=== PATIENT | female | born 1995 | race Caucasian/White ===

== ENCOUNTER 2018-04-04 12:52 | Emergency (ER) | END 2018-04-04 15:53 | disposition home or self-care (01) ==

== ENCOUNTER 2018-09-16 16:27 | Emergency (ER) | END 2018-09-16 19:24 | disposition home or self-care (01) ==

== ENCOUNTER 2019-03-29 10:19 | Emergency (ER) | payer OTHER ==
[~2019-03-29] VITALS: Ht 175.3 cm; Wt 99.5 kg
[~2019-03-29 10:19] MED LIST: ACET500C5 PO; BENZ1LOZ52 MM; IBUP-1542 PO; OFLO5DRO7 BOTH EARS; OMEP20CA16 PO; ONDA4TAB14 PO; RANI150T35 PO
[2019-03-29 10:23] VITALS: Ht 175.3 cm; Wt 99.5 kg
[2019-03-29] MEDS ORDERED: SOD CHLORIDE 0.9% 1,000 ML IV STA (10:42)
[2019-03-29] MEDS ORDERED: KETOROLAC 15 MG INJ IV STA (13:12)
[2019-03-29] MEDS ORDERED: DIPHENHYDRAMINE 50 MG INJ IV ONE (13:30)
[2019-03-29] MEDS ORDERED: METOCLOPRAMIDE 10 MG INJ IV ONE (13:30)
[2019-03-29] MEDS ORDERED: CEPH-443 PO (14:21)
--- NOTE | 2019-03-29 14:21 | ERD ---
ER Documentation Chief Complaint Chief Complaint RT SIDE HEAD , RT SHOULDER PAIN S/P FALL /SYNCOPAL EPISODE YESTERDAY HPI This is a 23-year-old female with a past medical history of GERD who is presenting after a syncopal event. The patient was out with her friends at a bowling alley. She had just finished eating carne asada fries and onion rings. She got up from a seated position when she suddenly felt lightheaded and dizzy. She felt tingling in her face and reports that her vision started to go out. Next thing she remembers is being helped up off the floor. The patient lost consciousness for a few seconds to a minute before coming to per report. The patient did hit her head and also landed on her right shoulder. The patient does endorse a mild right-sided headache with some lightheadedness. She also endorses some nausea without vomiting. She does not endorse any photophobia or phonophobia or double or blurry vision. She also feels foggy and is having trouble focusing. She lastly endorses right shoulder soreness and pain with some limited range of motion secondary to pain. The patient has had no focal deficits. The patient has had no weakness or numbness or tingling to the face or extremities. The patient denies feeling sick recently. The patient denies fever or chills. The patient does not endorse neck or back pain. The patient has had no chest pain or trouble breathing. The patient denies abdominal pain. The patient denies changes to bowel movements. She does not endorse dysuria, but she does endorse urinary urgency and frequency, which is new. ROS All systems reviewed and are negative except as per history of present illness. Medications Home Meds Discontinued Scripts Ondansetron (Ondansetron Odt) 4 Mg Tab.rapdis, 4 MG PO Q6H PRN for NAUSEA AND/OR VOMITING, #10 TAB Prov:LANE HANNA PA-C 09/16/18 Omeprazole* (Omeprazole*) 20 Mg Capsule.dr, 20 MG PO DAILY, #20 Prov:LANE HANNA PA-C 09/16/18 Ranitidine Hcl* (Zantac*) 150 Mg Tablet, 150 MG PO BID PRN for EPIGASTRIC PAIN, #30 TAB Prov:LANE HANNA PA-C 09/16/18 Acetaminophen* (Tylophen*) 500 Mg Capsule, 1 CAP PO Q6H PRN for PAIN AND OR ELEVATED TEMP, #20 CAP Prov:RENETTA TREJO PA-C 04/04/18 Ibuprofen* (Motrin*) 600 Mg Tab, 600 MG PO Q6, #30 TAB Prov:RENETTA TREJO PA-C 04/04/18 Ondansetron (Ondansetron Odt) 4 Mg Tab.rapdis, 4 MG PO Q6H PRN for NAUSEA AND/OR VOMITING, #10 TAB Prov:RENETTA TREJO PA-C 04/04/18 Benzocaine/Menthol* (Cepacol* Sore Throat Lozenges) 1 Each Lozenge, 1 EACH MM q2h PRN for SORE THROAT for 10 Days, LOZENGE Prov:DEJESUSFRANCISCO JAVIER I. POCKET CLOSER 12/14/15 Acetaminophen* (Tylophen*) 500 Mg Capsule, 2 CAP PO Q8H PRN for PAIN AND OR ELEVATED TEMP, #20 CAP Prov:DEJESUSFRANCISCO JAVIER I. POCKET CLOSER 12/14/15 Ibuprofen* (Motrin*) 600 Mg Tab, 600 MG PO Q6, #14 TAB Prov:DEJESUSFRANCISCO JAVIER I. POCKET CLOSER 12/14/15 Ofloxacin* (Floxin* Otic) 0.3% -10 Ml Soln, 5 DROP BOTH EARS BID for 10 Days, BOTTLE Prov:DEJESUSFRANCISCO JAVIER I. POCKET CLOSER 12/14/15 Allergies Allergies: Coded Allergies: No Known Allergy (Unverified , 03/29/19) PMhx/Soc Medical and Surgical Hx: pt denies Surgical Hx History of Surgery: No Anesthesia Reaction: No Hx Neurological Disorder: No Hx Respiratory Disorders: No Hx Cardiac Disorders: No Hx Psychiatric Problems: No Hx Miscellaneous Medical Probl: Yes (GERD) Hx Alcohol Use: Yes (OCCASIONAL DRINKER) Hx Substance Use: Yes (marijuana occassionally) Hx Tobacco Use: No Smoking Status: Never smoker FmHx Family History: No diabetes Physical Exam Vitals Vital Signs Date Temp Pulse Resp B/P (MAP) Pulse Ox O2 O2 Flow FiO2 Time Delivery Rate 03/29/19 70 121/81 12:13 (94) 74 116/76 (89) 75 124/98 (107) 03/29/19 98.1 83 18 132/89 99 10:23 (103) Physical Exam Const: No apparent distress, well-developed, well-nourished Head: Normocephalic. Mild abrasion to the right forehead. Eyes: Normal Conjunctiva. Extraocular movements intact. Pupils equal, round and reactive to light ENT: Normal External Ears, Nose and Mouth. Neck: Full range of motion. No meningismus. Resp: Clear to auscultation bilaterally, No wheezes, rales or rhonchi Cardio: Regular rate and rhythm. No murmurs, rubs or gallops Abd: Soft, non tender, non distended. Normal bowel sounds Skin: No petechiae or rashes Back: No midline tenderness. No CVA tenderness Ext: No cyanosis, or edema. Limited range of motion to the right shoulder secondary to pain. Neur: Awake and alert, oriented 4. Cranial nerves intact. No facial droop. Normal strength, sensation and coordination. Psych: Normal Mood and Affect Result Diagram: 03/29/19 1042 03/29/19 1120 Results 24 hrs Laboratory Tests Test 03/29/19 10:42 03/29/19 10:45 03/29/19 10:56 03/29/19 11:20 White Blood 11.7 10^3/ul Count Red Blood Count 5.11 10^6/ul Hemoglobin 12.0 g/dl Hematocrit 38.6 % Mean Corpuscular 75.5 fl Volume Mean Corpuscular 23.5 pg Hemoglobin Mean Corpuscular 31.1 g/dl Hemoglobin Kin[place] nt Red Cell 15.9 % Distribution Width Platelet Count 357 10^3/UL Mean Platelet 9.7 fl Volume Immature 0.400 % Granulocytes % Neutrophils % 76.6 % Lymphocytes % 13.5 % Monocytes % 8.8 % Eosinophils % 0.3 % Basophils % 0.4 % Nucleated Red 0.0 /100WBC Blood Cells % Immature 0.050 10^3/ul Granulocytes # Neutrophils # 8.9 10^3/ul Lymphocytes # 1.6 10^3/ul Monocytes # 1.0 10^3/ul Eosinophils # 0.0 10^3/ul Basophils # 0.1 10^3/ul Nucleated Red 0.0 10^3/ul Blood Cells # Urine Color YELLOW Urine Clarity CLOUDY Urine pH 7.0 Urine Specific 1.012 [place] Urine Ketones NEGATIVE mg/dL Urine Nitrite NEGATIVE mg/dL Urine Bilirubin NEGATIVE mg/dL Urine NEGATIVE mg/dL Urobilinogen Urine Leukocyte 1+ [place]/ul Esterase Urine 6 /HPF Microscopic RBC Urine 24 /HPF Microscopic WBC Urine Squamous MODERATE /HPF Epithelial Cells Urine Bacteria FEW /HPF Urine Hemoglobin 1+ mg/dL Urine Glucose NEGATIVE mg/dL Urine Total NEGATIVE mg/dl Protein POC Beta HCG, NEGATIVE Qualitative Sodium Level 140 mmol/L Potassium Level 4.1 mmol/L Chloride Level 108 mmol/L Carbon Dioxide 23 mmol/L Level Anion Gap 9 Blood Urea 9 mg/dl Nitrogen Creatinine 0.60 mg/dl Est Glomerular > 60 mL/min Filtrat Rate mL/min Glucose Level 90 mg/dl Calcium Level 9.0 mg/dl Troponin I < 0.012 ng/ml Current Medications Medications Dose Sig/Sulaiman Start Time Status Last (Trade) Ordered Route PRN Stop Time Admin Dose Reason Admin Sodium 1,000 ml @ Q1H STAT 03/29/19 DC 03/29/19 Chloride 1,000 mls/hr IV 10:42 11:35 03/29/19 11:41 10 mg ONCE ONCE 03/29/19 DC 03/29/19 Metoclopramid IV 13:30 13:36 e HCl 03/29/19 13:31 (Reglan) 25 mg ONCE ONCE 03/29/19 DC 03/29/19 Diphenhydrami IV 13:30 13:36 ne HCl 03/29/19 13:31 (Benadryl) Ketorolac 15 mg ONCE STAT 03/29/19 DC 03/29/19 Tromethamine IV 13:12 13:36 (Toradol) 03/29/19 13:14 Procedures/MDM MDM The patient's presentation warrants further investigation. Previous medical records, if available, were reviewed. LABS The patient's laboratory testing was obtained and reviewed. No emergent treatment was required unless described below. CBC: Mild leukocytosis without shift, likely reactive. Microcytosis without anemia. Normal platelet count. Chemistry: No E/o severe acidosis or alkalosis or renal failure or diabetic ketoacidosis Troponin: No E/o acute ischemia Urine: E/o acute infection with hematuria EKG EKG read by me: Rate/Rhythm: Regular rate and rhythm at a rate of 83 bpm Intervals: Normal [place]: Normal Impression: No evidence of acute ischemia or arrhythmia IMAGING Imaging and Radiology interpretation reviewed. CXR FINDINGS: Support Hardware: None Cardiovascular: The cardiovascular silhouette appears unremarkable. Lung Puckett: The lung puckett appear clear with no nodule, alveolar infiltrate, or interstitial prominence evident. Pleural Spaces: No pneumothorax or pleural effusion is identified. Osseous Structures: The osseous structures appear intact. Soft Tissues: The soft tissues appear unremarkable. IMPRESSION: Unremarkable portable chest. Electronically viewed and signed by Physician Jennifer on 03/29/2019 10:57 TREATMENT/DISPOSITION The patient presents after a syncopal event. The patient has a reassuring physical exam. The patient is not clinically orthostatic. The patient is not dizzy. I have decreased suspicion for vertigo. The patient has no signs of em ergent or symptomatic anemia. The patient does not have any emergent electrolyte or metabolic emergencies. I have decrease suspicion for a thyroid disorder. The patient is not toxic appearing. I have decreased suspicion for a systemic infection as the etiology of symptoms. The patient's urinalysis does reveal urinary tract infection. This could have led to a vasovagal event. The patient will require antibiotics in an outpatient setting. The patient's EKG and troponin are reassuring. I have low suspicion for acute coronary syndrome. I do not see evidence of any emergent cardiac arrhythmia, which includes but is not limited to heart block, Brugada syndrome or WPW. The patient has no heart murmurs or rales. There is no evidence of cardiomegaly on exam or chest xray. I have low suspicion for hypertrophic cardiomyopathy. I do not see evidence of CHF. The patient does not endorse any chest or pleuritic pain. The history is negative for bleeding or clotting disorders. The patient has not been involved in any recent prolonged trips or surgeries or hospitalizations. The patient has no calf tenderness or swelling. I have decreased suspicion for PE as the etiology of symptoms. The patient did fall and hit her head last night during her syncopal event. I do suspect that she could have sustained a concussion. The patient has no focal deficits. The neurologic exam is reassuring. I have decreased suspicion for cerebral ischemia. There is no personal or family history of cerebral aneurysm. I have decreased suspicion for SAH or other ICH. I have low suspicion for temporal arteritis, cavernous venous thrombosis, subdural hematoma, epidural hematoma, meningitis. I do not feel that further CT imaging is required at this time. The [place] Syncope Rule was applied and the patient was found to be low risk for a serious outcome. The patient was treated with IV fluids, Toradol, Reglan and Benadryl with some improvement of her symptoms. DISCHARGE Upon reevaluation of the patient, symptoms have improved. No emergent diagnoses were identified. At this time, I feel that the patient stable for discharge. The patient was instructed to follow-up with a primary care physician in 1-3 days. The patient will be given strict precautions with which to return to the emergency department. Prescriptions: Keflex The patient's blood pressure was elevated at greater than 120/80 while in the emergency department. The patient was otherwise stable with no evidence of hypertensive urgency or emergency. The patient does not require admission for blood pressure control. I have discussed with the patient the risks of hypertension. I have instructed the patient to return to the ER for any new or worsening symptoms including chest pain, shortness of breath, headache, blurred vision, confusion, nausea, vomiting or LOC. I have advised the patient to follow up with the primary care physician for outpatient monitoring and treatment for hypertension in 1-3 days. Disclaimer: Inadvertent spelling and grammatical errors are likely due to EHR/dictation software use and do not reflect on the overall quality of patient care. Note that the electronic time recorded on this note does not necessarily reflect the actual time of the patient encounter. Departure Diagnosis: Primary Impression: Syncope Syncope type: unspecified Qualified Codes: R55 - Syncope and collapse Additional Impressions: Head trauma Encounter type: initial encounter Qualified Codes: S09.90XA - Unspecified injury of head, initial encounter Leukocytosis Leukocytosis type: unspecified Qualified Codes: D72.829 - Elevated white blood cell count, unspecified Microcytosis UTI (urinary tract infection) Urinary tract infection type: acute cystitis Hematuria presence: with hematuria Qualified Codes: N30.01 - Acute cystitis with hematuria Condition: Stable Patient Instructions: Concussion, Syncope, Unk Cause, Understanding Urinary Tract Infections (UTIs) Additional Instructions: Thank you for for coming to [facility] for your care today. Please ask your nurse or provider if you have questions about your care today and do not leave until all your questions have been answered. Please use any medications given as directed and follow-up with your doctor (or the doctor you were referred to) in the next 1-3 days. If you do not have a primary care doctor you may follow up at the [facility] or [facility] (listed below). You may also use motrin and tylenol as needed for fever and/or pain unless instructed otherwise by your provider or nurse. Indications for more urgent follow-up have been discussed, but you may return to the Emergency Department at ANY time for any worrisome or worsening symptoms. If you have abdominal pain, please know that no test or exam you received is perfect and you should follow up within 8 hours for continued pain. If you had any imaging studies today, such as an X-Ray or CT Scan, these studies will be reviewed later by a radiologist. You will be called if there are important findings that were not identified today, so make sure the contact information you provided at registration is correct. If you received any narcotic pain control medicine today, such as Vicodin, Morphine or Dilaudid, your coordination and judgment may be affected for a number of hours. Please do not drive or operate heavy machinery, and you may want someone to assist you at home. If you were given a prescription for narcotic medication, be aware that it is very addictive- use sparingly and only if necessary. PLEASE SEEK FURTHER EVALUATION AND MANAGEMENT AT YOUR DOCTORS OFFICE WITHIN THE NEXT 1-3 DAYS. IT IS YOUR RESPONSIBILITY TO MAKE AN APPOINTMENT FOR FOLOW-UP CARE. IF YOU HAVE A PRIMARY DOCTOR, PLEASE CALL THEIR OFFICE TO SCHEDULE AN APPOINTMENT FOR FOLLOW UP. IF YOU DO NOT HAVE A PRIMARY DOCTOR YOU CAN CALL OUR PHYSICIAN REFERRAL HOTLINE AT IF YOU CAN NOT AFFORD TO SEE A PHYSICIAN YOU CAN CHOSE FROM THE FOLLOWING [facility] CLINICS: [facility] [address]. [facility] [address] [facility]. [facility] [address] [facility] [address] [facility] [address] [facility]. [facility]. [address] [place] Mar 29, 2019 14:16
[2019-03-29 14:28] VITALS: BP 128/87; PULSE 73; RESP 18
== END 2019-03-29 15:08 | disposition home or self-care (01) ==
LOC: E/R 10:19
DX: S09.90XA Unspecified injury of head, initial encounter (principal); D72.829 Elevated white blood cell count, unspecified; R71.8 Other abnormality of red blood cells; N30.01 Acute cystitis with hematuria; W18.30XA Fall on same level, unspecified, initial encounter; Y92.9 Unspecified place or not applicable
CPT/HCPCS: 36415; 71045; 80048; 81001; 81025; 84484; 85025; 93005; 96361; 96374; 96375; J1200; J1885; J2765; J7030; Z7502